=== PATIENT | male | born 1965 | race Two or more races ===

== ENCOUNTER 2018-03-12 12:41 | Inpatient (IN) | payer OTHER ==
[~2018-03-12] VITALS: Ht 177.8 cm; Wt 87.1 kg
[2018-03-12 12:56] VITALS: Ht 177.8 cm; Wt 87.1 kg
[2018-03-12 14:02] LABS: CALCIUM 8.5 mg/dL (8.5-10.1); CARBON DIOXIDE 26.5 mmol/L (21-32); CHLORIDE SERUM 105 mmol/L (98-107); CREATININE SERUM 0.9 mg/dL (0.7-1.3); GFR1 > 60 mL/min; GLUCOSE SERUM 184 mg/dL (74-106); POTASSIUM SERUM 4.1 mmol/L (3.5-5.1); SODIUM SERUM 138 mmol/L (136-145)
[2018-03-12 14:07] LABS: ALBUMIN 3.5 g/dL (3.4-5.0); ALKALINE PHOSPHATASE 88 U/L (46-116); ALT/SGPT 44 U/L (16-63); AST/SGOT 28 U/L (15-37); BILIRUBIN TOTAL 0.68 mg/dL (0.20-1.00); TOTAL PROTEIN, SERUM 6.9 g/dL (6.4-8.2)
[2018-03-12 14:11] LABS: BASOPHIL % 1.4 % (0-2); PLATELET COUNT 159 x10^3mcL (130-400); RED CELL DISTRIBUTION WIDTH 13.2 % (11.5-14.5)
[2018-03-12] MEDS ORDERED: ZES10 PO (14:32)
[2018-03-12] MEDS ORDERED: METFORMIN HYDR500 M1 PO (14:32)
[2018-03-12] MEDS ORDERED: GLIPIZIDE5 M2 PO (14:32)
[2018-03-12] MEDS ORDERED: ATORVASTATIN CA10 M1 PO (14:33)
[2018-03-12] MEDS ORDERED: VITAMIN D50000 I4 PO (14:33)
[2018-03-12] MEDS ORDERED: ZOCOR20 MG PO (14:34)
[2018-03-12] MEDS ORDERED: VENTOLIN H0.09 MG/A1 INH (14:34)
[2018-03-12] MEDS ORDERED: CYCLOBENZAPRINE10 MG PO (14:34)
[2018-03-12] MEDS ORDERED: GLUCOSAMINE HC500 MG PO (14:35)
[2018-03-12] MEDS ORDERED: ASPIR LOW81 MG PO (14:35)
[2018-03-12] MEDS ORDERED: MUCUS AND COUG1 EACH PO (14:35)
[2018-03-12] MEDS ORDERED: GLUCOTROL10 MG PO (14:35)
[2018-03-12 15:32] LABS: PHOSPHOROUS 3.1 mg/dL (2.5-4.9)
[2018-03-12 15:33] LABS: CHOLESTEROL/HDL RATIO 5.6
[2018-03-12 15:36] VITALS: BP 137/83
[2018-03-12 15:41] LABS: FREE T4 1.13 ng/dL (0.76-1.46); FREE THYROXINE INDEX 3.1 ug/dL (1.4-4.5); T4(THYROXINE) 8.5 ug/dL (4.7-13.3)
[2018-03-12 15:45] VITALS: BP 130/82
[2018-03-12 15:45] LABS: T3 TOTAL 1.13 ng/mL
[2018-03-12 17:34] VITALS: BP 127/88
[2018-03-12 20:55] VITALS: BP 121/80
[2018-03-12 22:06] LABS: UA SPECIFIC GRAVITY 1.025 (1.005-1.035); microscopic required? YES; urine erythrocyte NEGATIVE (NEGATIVE)
[2018-03-12 22:16] LABS: AMPHETAMINE QUAL UR NONE DETECTED (See below)
[2018-03-13 05:46] VITALS: BP 126/86
[2018-03-13 06:53] LABS: CALCIUM 8.9 mg/dL (8.5-10.1); CARBON DIOXIDE 26.2 mmol/L (21-32); CHLORIDE SERUM 105 mmol/L (98-107); GFR1 > 60 mL/min; GLUCOSE SERUM 103 mg/dL (74-106); MAGNESIUM 1.9 mg/dL (1.8-2.4); PHOSPHOROUS 4.5 mg/dL (2.5-4.9); POTASSIUM SERUM 3.9 mmol/L (3.5-5.1); SODIUM SERUM 141 mmol/L (136-145)
[2018-03-13 07:28] LABS: BASOPHIL % 0.5 % (0-2); PLATELET COUNT 155 x10^3mcL (130-400); RED CELL DISTRIBUTION WIDTH 12.5 % (11.5-14.5)
[2018-03-13 10:15] VITALS: BP 123/90
[2018-03-13 13:17] VITALS: BP 117/82
[2018-03-13 16:24] VITALS: BP 121/80
[2018-03-13 19:30] VITALS: BP 110/76
[2018-03-14 05:10] VITALS: BP 121/88
[2018-03-14 06:46] LABS: BASOPHIL % 0.4 % (0-2); PLATELET COUNT 166 x10^3mcL (130-400); RED CELL DISTRIBUTION WIDTH 13.2 % (11.5-14.5)
[2018-03-14 06:57] LABS: CALCIUM 8.8 mg/dL (8.5-10.1); CARBON DIOXIDE 29.5 mmol/L (21-32); CHLORIDE SERUM 104 mmol/L (98-107); CREATININE SERUM 1.2 mg/dL (0.7-1.3); GFR1 > 60 mL/min; GLUCOSE SERUM 159 mg/dL (74-106); PHOSPHOROUS 4.5 mg/dL (2.5-4.9); POTASSIUM SERUM 4.2 mmol/L (3.5-5.1); SODIUM SERUM 140 mmol/L (136-145)
[2018-03-14 10:01] VITALS: BP 124/89
[2018-03-14 13:34] VITALS: BP 123/81
[2018-03-14 16:10] VITALS: BP 111/81
[2018-03-14 21:04] VITALS: BP 115/83
[2018-03-15 06:21] VITALS: BP 105/75
[2018-03-15 07:17] LABS: CALCIUM 9.2 mg/dL (8.5-10.1); CARBON DIOXIDE 28.4 mmol/L (21-32); CHLORIDE SERUM 102 mmol/L (98-107); CREATININE SERUM 1.1 mg/dL (0.7-1.3); GFR1 > 60 mL/min; GLUCOSE SERUM 149 mg/dL (74-106); PHOSPHOROUS 4.5 mg/dL (2.5-4.9); SODIUM SERUM 139 mmol/L (136-145)
[2018-03-15 08:04] LABS: BASOPHIL % 0.7 % (0-2); PLATELET COUNT 177 x10^3mcL (130-400); RED CELL DISTRIBUTION WIDTH 12.2 % (11.5-14.5)
[2018-03-15 09:10] VITALS: BP 110/79
[2018-03-15 12:45] VITALS: BP 118/89
[2018-03-15] MEDS ORDERED: L40I IV (18:26)
[2018-03-15] MEDS ORDERED: COZ25 PO (18:26)
[2018-03-15] MEDS ORDERED: COR3 PO (18:26)
[2018-03-15] MEDS ORDERED: ATORVASTATIN CA40 M1 PO (18:27)
[2018-03-15 18:48] VITALS: BP 118/89
== END 2018-03-15 21:12 | disposition short-term general hospital (02) | DRG 194 ==
LOC: ED 12:41 → DU 14:41
PROVIDERS: Emergency Medicine; Family Medicine
DX: I11.0 Hypertensive heart disease with heart failure (principal); E11.65 Type 2 diabetes mellitus with hyperglycemia; I27.20 Pulmonary hypertension, unspecified; I50.41 Acute combined systolic (congestive) and diastolic (congestive) heart failure; E78.5 Hyperlipidemia, unspecified; Z79.82 Long term (current) use of aspirin; Z68.29 Body mass index [BMI] 29.0-29.9, adult; Z87.891 Personal history of nicotine dependence; Z79.84 Long term (current) use of oral hypoglycemic drugs; E78.00 Pure hypercholesterolemia, unspecified; Z79.899 Other long term (current) drug therapy; Z83.3 Family history of diabetes mellitus; T46.4X5A Adverse effect of angiotensin-converting-enzyme inhibitors, initial encounter; Y92.89 Other specified places as the place of occurrence of the external cause; J44.9 Chronic obstructive pulmonary disease, unspecified; I25.5 Ischemic cardiomyopathy
CPT/HCPCS: 82962; 83880; 84439; 94150; A9500; J1644; J1940; J2785; J7620; Q0092